=== PATIENT | male | born 1995 | race Caucasian/White ===

== ENCOUNTER 2019-02-16 20:40 | Emergency (ER) | payer OTHER ==
[~2019-02-16] VITALS: Ht 175.3 cm; Wt 79.4 kg
[~2019-02-16 20:40] MED LIST: ABILIFY 5 MG TAB5 MG PO; AMOXICILLIN 50500 M1 PO; AUGMENTIN 500-1 EACH PO; CLONAZEPAM 0.50.5 M1 PO; HYDROCODONE-AP1 EAC6 PO; IBUPROFEN 800800 M1 PO; NOHOMEMEDICATIONS
[2019-02-16] MEDS ORDERED: IBUPROFEN 600600 M1 PO (20:52)
[2019-02-16 21:24] VITALS: BP 125/80
== END 2019-02-16 21:25 | disposition home or self-care (01) ==
LOC: M.ERS 20:40
DX: S93.491A Sprain of other ligament of right ankle, initial encounter (principal); V19.49XA Pedal cycle driver injured in collision with other motor vehicles in traffic accident, initial encounter; Y93.89 Activity, other specified; Y92.89 Other specified places as the place of occurrence of the external cause; Y99.8 Other external cause status

== ENCOUNTER 2019-07-26 17:33 | Emergency (ER) | payer OTHER ==
[~2019-07-26] VITALS: Ht 175.3 cm; Wt 83.9 kg
[~2019-07-26 17:33] MED LIST changes: +IBUPROFEN 600600 M1 PO
[2019-07-26] MEDS ORDERED: ROBAXIN 750 MG750 MG PO (19:12)
[2019-07-26] MEDS ORDERED: NABUMETONE 750750 M1 PO (19:12)
[2019-07-26] MEDS ORDERED: TRAMADOL 50 MG50 MG PO (22:21)
[2019-07-26 22:32] VITALS: BP 140/84
== END 2019-07-26 22:33 | disposition home or self-care (01) ==
LOC: M.ERS 17:33
DX: S06.0X0A Concussion without loss of consciousness, initial encounter (principal); S39.012A Strain of muscle, fascia and tendon of lower back, initial encounter; S16.1XXA Strain of muscle, fascia and tendon at neck level, initial encounter; V89.2XXA Person injured in unspecified motor-vehicle accident, traffic, initial encounter; Y93.89 Activity, other specified; Y92.89 Other specified places as the place of occurrence of the external cause; Y99.8 Other external cause status